=== PATIENT | male | born 1965 | race Caucasian/White ===

== ENCOUNTER 2017-01-09 08:57 | Emergency (ER) | payer OTHER ==
[2017-01-09 09:06] VITALS: BP 148/94; PULSE 84; TEMP 98.4; BMI 34.7
[2017-01-09] MEDS ORDERED: DIPHTH,PERTUSS(ACELL),TET 0.5 ML DISP.SYRIN IM ONE (09:35)
--- NOTE | 2017-01-09 09:38 | PDOC ---
History of Present Illness - General Chief Complaint: Injury Stated Complaint: FALL, ABRASION&LACERATION Time Seen by Provider: 01/09/17 09:16 History Source: Patient Exam Limitations: No Limitations - History of Present Illness Initial Comments: 01/09/17 10:11 51 yr male tripped at work and injured both knees on the elevator platform. no head trauma. Occurred: reports: just prior to arrival Severity: reports: mild Pain Location: reports: lower extremity Past History - Past Medical History Allergies/Adverse Reactions: Allergies Allergy/AdvReac Type Severity Reaction Status Date / Time No Known Allergies Allergy Verified 01/09/17 09:01 Home Medications: Ambulatory Orders NK [No Known Home Medication] 01/09/17 Hypercholesterolemia: Yes - Surgical History GI Surgery: Yes (GASTRIC BYPASS) - Psycho/Social/Smoking Cessation Hx Suicidal Ideation: No Smoking History: Never smoked Trauma Specific PMHX - Complaint Specific PMHX Arthritis: No Back Injury: No Neck Injury: No Hx Sacro Iliac Joint Dysfunction: No Review of Systems - Review of Systems Able to Perform ROS?: Yes Is the patient limited Persian proficient: No Constitutional: No: Symptoms Reported HEENTM: No: Symptoms Reported Respiratory: No: Symptoms reported Cardiac (ROS): No: Symptoms Reported ABD/GI: No: Symptoms Reported : No: Symptoms Reported Musculoskeletal: Yes: Symptoms Reported Integumentary: Yes: Symptoms Reported *Physical Exam - Vital Signs Last Vital Signs Temp Pulse Resp BP Pulse Ox 98.4 F 84 19 148/94 98 01/09/17 09:01 01/09/17 09:01 01/09/17 09:01 01/09/17 09:01 01/09/17 09:01 - Physical Exam General Appearance: Yes: Nourished, Appropriately Dressed HEENT: positive: EOMI, SREEDHAR Neck: positive: Supple Extremity: positive: Normal Capillary Refill, Normal Inspection, Normal Range of Motion, Tender (bilateral knees) Integumentary: positive: Swelling (bilateral knees, right mojica with puncture wound 3mm), Ecchymosis Neurologic: positive: Fully Oriented, Alert, Normal Mood/Affect, Normal Response , Motor Strength 5/5 Procedures - Laceration/Wound Repair Right Anterior Proximal Leg Wound Length: to 2.5 cm Wound Explored: clean Wound's Depth, Shape: into muscle (puncture wound ) Irrigated w/ Saline: Yes Betadine Prep: Yes Wound Repaired With: Steri-strips ED Treatment Course - RADIOLOGY Radiology Studies Ordered: Category Date Time Status KNEE 3 POS-LEFT [RAD] Stat Radiology 01/09/17 09:36 Ordered KNEE 3 POS-RIGHT [RAD] Stat Radiology 01/09/17 09:36 Ordered LEG TIB/FIB-RIGHT [RAD] Stat Radiology 01/09/17 09:36 Ordered Medical Decision Making - Medical Decision Making 01/09/17 10:13 cc: trip and fall will update tetanus, steristrip to laceration, bacitracin placed, xray both knees and right tib/fib pt refused motrin or tylenol pt [facility] ambulatory *DC/Admit/Observation/Transfer Diagnosis at time of Disposition: Laceration Contusion Qualifiers: Encounter type: initial encounter Contusion area: lower leg Laterality: right Qualified Code(s): S80.11XA - Contusion of right lower leg, initial encounter - Discharge Dispostion Disposition: HOME Condition at time of disposition: Good - Referrals Referrals: Ralph Khan [Primary Care Provider] - - Patient Instructions Additional Instructions: keep the laceration clean and dry the tape will peel off on own keep covered with bandaid until healed avoid getting wet as much as possible take motrin as needed for any pain follow with your doctor for any worsening pain or other concerns
== END 2017-01-09 10:50 | disposition home or self-care (01) ==
LOC: JERFT 08:57
PROC: 3E0234Z Introduction of Serum, Toxoid and Vaccine into Muscle, Percutaneous Approach (ICD-10-PCS; principal; 2017-01-09)
DX: S81.811A Laceration without foreign body, right lower leg, initial encounter (principal); S80.11XA Contusion of right lower leg, initial encounter; E78.00 Pure hypercholesterolemia, unspecified; Z98.84 Bariatric surgery status; Z98.0 Intestinal bypass and anastomosis status; W18.39XA Other fall on same level, initial encounter; Y93.89 Activity, other specified; Y92.9 Unspecified place or not applicable; Y99.0 Civilian activity done for income or pay
CPT/HCPCS: 73562-TC-LT; 73562-TC-RT; 73590-TC-RT; 90715; 99281-25